=== PATIENT | female | born 1945 | race Asian ===

== ENCOUNTER → 2017-01-06 | Outpatient (CLI) | payer OTHER, MEDICAID | LOC: BRMIMAGING 10:32 | PROVIDERS: ATTEND Family Medicine | DX: Z13.820 Encounter for screening for osteoporosis (principal); Z78.0 Asymptomatic menopausal state; M81.0 Age-related osteoporosis without current pathological fracture; E04.1 Nontoxic single thyroid nodule ==

== ENCOUNTER → 2018-06-22 | Outpatient (CLI) | payer OTHER, MEDICAID | LOC: BMCIMAGING 10:53 | PROVIDERS: ATTEND Internal Medicine Rheumatology | DX: M19.041 Primary osteoarthritis, right hand (principal); M19.042 Primary osteoarthritis, left hand ==

== ENCOUNTER → 2018-06-22 | Outpatient (CLI) | payer OTHER, MEDICAID | LOC: FIMAGING 13:09 | PROVIDERS: ATTEND Family Medicine | DX: Z13.820 Encounter for screening for osteoporosis (principal); M81.0 Age-related osteoporosis without current pathological fracture ==

== ENCOUNTER → 2018-08-24 | Outpatient (CLI) | payer OTHER, MEDICAID | LOC: CIMAGING 12:38 | PROVIDERS: ATTEND Family Medicine | DX: R93.7 Abnormal findings on diagnostic imaging of other parts of musculoskeletal system (principal) | CPT/HCPCS: 73551-PO ==